=== PATIENT | female | born 1995 | race Caucasian/White ===

== ENCOUNTER 2017-04-03 13:05 | Emergency (ER) | payer OTHER ==
[~2017-04-03] VITALS: Ht 157.5 cm; Wt 70.3 kg
[~2017-04-03 13:05] MED LIST: FLEXERIL10 MG PO; IBUPROFEN600 M1 PO; TYLENOL #31 TAB PO; ZOFRAN4 M2 PO
--- NOTE | 2017-04-03 14:04 | ED ANKLE/FOOT INJURY COMPLAINT ---
History of Present Illness General Chief Complaint: Foot or Ankle Injury Stated Complaint: L ANKLE INJURY Source: patient Exam Limitations: no limitations Vital Signs & Intake/Output Vital Signs & Intake/Output Vital Signs Date Time Temp Pulse Resp B/P B/P Pulse O2 O2 Flow FiO2 Mean Ox Delivery Rate 04/03 1442 98.1 78 20 116/80 97 Room Air 04/03 1332 98.3 76 20 112/76 96 Room Air Allergies Coded Allergies: Penicillins (RASH 10/10/16) Reconcile Medications No Known Home Medications Triage Note: PT C/O ARCH PAIN IN LEFT FOOT. STATES SHE WOKE UP WITH THE PAIN. STATES YESTERDAY SHE WAS WEARING HEELS AND TWISTED IT Triage Nurses Notes Reviewed? yes Occurred: just prior to arrival Duration: day(s):, constant, continues in ED Timing: recent history Severity: moderate, severe Pain/Injury Location: Left: Foot, Ankle. Method of Injury: twisted No Modifying Factors: none : No Patient currently breastfeeds: No HPI: 22-year-old female comes into emergency room with complaints of left ankle pain and foot pain. Symptoms began going on for the past day. Patient reports that she twisted it yesterday. Sharp pain. Pain is located on the inside and outside of her foot as well as the bottom of her foot over the arch. (EDWARD FINLEY) Past History Travel History Traveled to [place] past 21 day No Medical History Any Pertinent Medical History? none Surgical History Surgical History: non-contributory Psychosocial History What is your primary language Belgian Tobacco Use: Never used ETOH Use: occasional use Illicit Drug Use: denies illicit drug use Family History Hx Contributory? No (EDWARD FINLEY) Review of Systems Review of Systems Constitutional: Reports: no symptoms. EENTM: Reports: no symptoms. Respiratory: Reports: no symptoms. Cardiovascular: Reports: no symptoms. GI: Reports: no symptoms. Genitourinary: Reports: no symptoms. Musculoskeletal: Reports: see HPI. Skin: Reports: no symptoms. Neurological/Psychological: Reports: no symptoms. Hematologic/Endocrine: Reports: no symptoms. Immunologic/Allergic: Reports: no symptoms. All Other Systems: Reviewed and Negative (EDWARD FINLEY) Physical Exam Physical Exam General Appearance: well developed/nourished, mild distress Head: atraumatic Eyes: Bilateral: normal appearance. Ears, Nose, Throat: normal ENT inspection, hearing grossly normal Neck: normal inspection Cardiovascular/Respiratory: no respiratory distress Back: normal inspection Leg/Knee/Thigh Left: normal inspection Ankle Left: normal inspection, normal range of motion Foot Left: normal range of motion, soft tissue tenderness Neuro/Vascular: normal motor function, normal sensation Tendon: normal tendon function Psychiatric: awake, alert, oriented x 3 Skin: intact, normal color, warm/dry (EDWARD FINLEY) Progress Differential Diagnosis: cellulitis, septic arthritis, gout, fracture, dislocation, sprain, contusion, compartmental syndrome Plan of Care: Orders Procedure Date/time Status XRY-FOOT COMPLETE, LEFT 04/03 1333 Active XRY-ANKLE 3 OR MORE VIEWS L 04/03 132 Active Diagnostic Imaging: Viewed by Me: Radiology Read. Discussed w/RAD: Radiology Read. Radiology Impression: SERVICE DATE: 04/03/17 EXAM TYPE: RAD - XRY-ANKLE 3 OR MORE VIEWS L; XRY-FOOT COMPLETE, LEFT EXAMINATION: XR ANKLE, LEFT XR FOOT, LEFT CLINICAL INFORMATION: Pain ankle and foot. COMPARISON: Left ankle 2012. TECHNIQUE: Left ankle is imaged in 3 views. The left foot is imaged in an additional 3 views. There are total of 6 views. FINDINGS: The ankle shows no fracture or dislocation. The talar dome shows no osteochondral lesion. Ankle mortise is symmetric. The retrocalcaneal recess is preserved. There are no calcaneal spurs. The midfoot and forefoot show no fracture or dislocation or destructive process. IMPRESSION: 1. No fracture or dislocation or destructive process. 2. No joint narrowing or erosive changes. 3. If there is concern for tendinopathy, then MRI of the foot would be recommended as an outpatient. DICTATED BY: MYRIAM JON MD DATE/TIME DICTATED:04/03/171407 CLASS B DRIVER:SRINIVASA Comments: 04/03/2017 2:28:41 PM Patient clinically looks well. No evidence of acute fracture. Follow-up with Dr. diogo livingston in 5-7 days. Return if any other concerns. (EDWARD FINLEY) Departure Departure Disposition: HOME OR SELF CARE Condition: Stable Clinical Impression Primary Impression: Sprain of left foot Referrals: KEEGAN SURESH DO (PCP/Family) JOLENE LOVE DPM Additional Instructions: Ice. Rest. Motrin for pain. Elevation. Follow-up with orthopedic doctor provided if not better in 3-5 days. If symptoms do not improve you'll require further evaluation with possible repeat x-rays as well as evaluation by building specialist. Sprains can last anywhere from days to weeks. No high impact running or jumping if you have an ankle sprain or any type of lower extremity sprain. Return to normal activity only after symptoms have resolved. Please go over all results of today's visit with your primary care doctor. Contact your primary care doctor to let them know you were here in the emergency room. There may be nonspecific findings which may not be related to your visit today here in the emergency room but may require further evaluation and chronic monitoring by your primary care doctor. If you had a laceration today the chance of foreign body always remains. You should follow-up with your primary care doctor for recheck in 3-5 days for a wound check. If you had an x-ray done there is a chance that a fracture could have been missed on initial read and you should follow-up with your primary care doctor for repeat x-rays if symptoms persist. If your blood pressure was elevated here in the emergency room please have rechecked by her primary care doctor within the next 48 hours by your primary care doctor. If you were prescribed a narcotic here in the emergency room or any type of controlled substances you're not allowed to drive while taking this medication or operate any type of heavy machinery. Narcotics can make you feel lightheaded dizziness nausea and can cause constipation. You may need to pharmacy picking technician a stool softener. Thank you for choosing [facility] emergency room. Please return to the emergency room immediately if you have any other concerns worsening of symptoms. Departure Forms: Customer Survey General Discharge Information Prescriptions: Current Visit Scripts No Known Home Medications (EDWARD FINLEY) PA/STREETCAR OPERATOR Co-Sign Statement Statement: ED Attending supervision documentation- [] I saw and evaluated the patient. I have also reviewed all the pertinent lab results and diagnostic results. I agree with the findings and the plan of care as documented in the PA's/STREETCAR OPERATOR's documentation. [X] I have reviewed the ED Record and agree with the PA's/STREETCAR OPERATOR's documentation. [] Additions or exceptions (if any) to the PAs/STREETCAR OPERATOR's note and plan are summarized below: [] (QUENTIN ARZOLA,JEANETTE Jose)
--- NOTE | 2017-04-03 14:19 | RADIOLOGY REPORT ---
EXAMINATION: XR ANKLE, LEFT XR FOOT, LEFT CLINICAL INFORMATION: Pain ankle and foot. COMPARISON: Left ankle 11/17/2013. TECHNIQUE: Left ankle is imaged in 3 views. The left foot is imaged in an additional 3 views. There are total of 6 views. FINDINGS: The ankle shows no fracture or dislocation. The talar dome shows no osteochondral lesion. Ankle mortise is symmetric. The retrocalcaneal recess is preserved. There are no calcaneal spurs. The midfoot and forefoot show no fracture or dislocation or destructive process. IMPRESSION: 1. No fracture or dislocation or destructive process. 2. No joint narrowing or erosive changes. 3. If there is concern for tendinopathy, then MRI of the foot would be recommended as an outpatient.
[2017-04-03 14:42] VITALS: BP 116/80
== END 2017-04-03 14:43 ==
LOC: ERH 13:05
DX: S93.602A Unspecified sprain of left foot, initial encounter (principal); X50.9XXA Other and unspecified overexertion or strenuous movements or postures, initial encounter; Y93.9 Activity, unspecified; Y92.9 Unspecified place or not applicable
CPT/HCPCS: 73610-LT; 73630-LT